=== PATIENT | female | born 1970 | race Caucasian/White ===

== ENCOUNTER → 2017-12-06 13:11 | Outpatient (CLI) | payer MEDICAID ==
[2017-12-10 03:11] LABS: MUMPS ANTIBODY IGM <0.80 AU (0.00-0.79)
[2017-12-10 14:19] LABS: IGG SUBCLASS 1 363 mg/dL (248-810); IGG SUBCLASS 2 207 mg/dL (130-555); IGG SUBCLASS 3 76 mg/dL (15-102); IGG SUBCLASS 4 10 mg/dL (2-96); IMMUNOGLOBULIN G 600 mg/dL (700-1600)
[2017-12-10 17:12] LABS: B TITER 1:32 (()); BLOOD GROUPING O (())
== END | disposition home or self-care (01) ==
LOC: D.LAB 13:11
PROVIDERS: Allergy & Immunology
DX: J32.9 Chronic sinusitis, unspecified (principal)

== ENCOUNTER → 2018-01-16 12:44 | Outpatient (CLI) | payer MEDICAID | END | disposition home or self-care (01) | LOC: D.LAB 12:44 | DX: D80.1 Nonfamilial hypogammaglobulinemia (principal) ==

== ENCOUNTER → 2018-05-09 09:45 | Outpatient (CLI) | payer MEDICAID | END | disposition home or self-care (01) | LOC: D.US 09:45 | DX: E04.9 Nontoxic goiter, unspecified (principal) ==

== ENCOUNTER 2018-06-21 15:27 | Emergency (ER) | payer MEDICAID ==
[~2018-06-21] VITALS: Ht 160 cm; Wt 109.1 kg
[2018-06-21 15:40] VITALS: Ht 160 cm; Wt 109.1 kg
[2018-06-21] MEDS ORDERED: NORVASC2.5 MG PO (15:43)
[2018-06-21] MEDS ORDERED: AMOXIL250 M1 PO (15:43)
[2018-06-21 16:04] LABS: BASOPHILS 0.5 % (0-2); EOSINOPHILS 1.9 % (0-7); HEMATOCRIT 34.8 % (36.0-48.0); HEMOGLOBIN 10.9 g/dL (12-16); IMMATURE GRANULOCYTES 0.5 % (0-5); LYMPHOCYTES 13.8 % (15-50); MCH 25.2 pg (26.0-34.0); MCHC 31.3 g/dL (31.0-37.0); MCV 80.6 fL (80.0-100.0); MEAN PLATELET VOLUME 11.2 fL (7.4-10.4); MONOCYTES 5.6 % (2-11); NEUTROPHILS 77.7 % (40-80); PLATELET COUNT 329 10x3/uL (130-400); RBC 4.32 10x6/uL (4.00-5.40); RDW 15.5 % (11.5-14.5); WBC 10.2 10x3/uL (4.8-10.8)
[2018-06-21 17:06] VITALS: BP 148/90
== END 2018-06-21 17:07 | disposition home or self-care (01) ==
LOC: D.ER 15:27
PROVIDERS: Emergency Medicine
DX: R04.0 Epistaxis (principal); I10 Essential (primary) hypertension; F17.200 Nicotine dependence, unspecified, uncomplicated